=== PATIENT | female | born 1965 | race Caucasian/White ===

== ENCOUNTER 2019-01-11 17:44 | Emergency (ER) | payer BC ==
[~2019-01-11 17:44] MED LIST: ALBUTEROL2.5 MG/0.5 INH; ARMOUR THYROID120 M1 PO; BENTYL10 MG PO; CELEBREX100 MG PO; CIPRO500 MG PO; FIORICET 325 MG1 TAB PO; FLUONAZOLE100 M1 PO; MEDROL DOSEPAK4 MG PO; PREDNISONE10 MG PO; ZITHROMAX Z PA250 MG PO
[2019-01-11 18:02] VITALS: BP 158/89
[2019-01-11 18:03] LABS: BASO # 0.1 10*3/uL (0.0-0.1); BASO % 0.8 % (0.0-1.0); EOS # 0.4 10*3/uL (0.0-0.4); EOS % 5.5 % (1.0-4.0); HEMATOCRIT 37.2 % (37.0-47.0); HEMOGLOBIN 11.3 g/dl (12.0-16.0); LYMPH # 2.2 10*3/uL (1.3-4.4); LYMPH % 28.8 % (27.0-41.0); MEAN CELL VOLUME 89.6 fl (81.0-99.0); MEAN CORPUSCULAR HGB 27.2 pg (27.0-31.0); MEAN CORPUSCULAR HGB CONC 30.4 g/dl (33.0-37.0); MEAN PLATELET VOLUME 10.3 fl (9.6-12.3); MONO # 0.5 10*3/uL (0.1-1.0); MONO % 7.2 % (3.0-9.0); NEUT # 4.3 10*3/uL (2.3-7.9); NEUT % 57.4 % (47.0-73.0); PLATELET COUNT AUTOMATED 338 10*3/uL (130-400); RED BLOOD COUNT 4.15 10*6/uL (4.10-5.10); WHITE BLOOD COUNT 7.5 10*3/uL (4.8-10.8)
[2019-01-11 18:28] LABS: BUN 12 mg/dl (7-24); CHLORIDE 113 mmol/L (98-107); SODIUM 145 mmol/L (136-145)
[2019-01-11] MEDS ORDERED: PREDNISONE10 MG PO (19:35)
[2019-01-11] MEDS ORDERED: AUGMENTIN 875875 MG PO (19:35)
[2019-01-11] MEDS ORDERED: PROVENTIL HFA6.7 GM INH (19:35)
[2019-01-11] MEDS ORDERED: FLUONAZOLE100 M1 PO (20:03)
[2019-01-11] MEDS ORDERED: VENTOLIN 02.5 MG/3 M INH (20:03)
== END 2019-01-11 20:10 | disposition home or self-care (01) ==
LOC: ED 17:44
PROVIDERS: Emergency Medicine
DX: J45.901 Unspecified asthma with (acute) exacerbation (principal); M79.7 Fibromyalgia; Z88.8 Allergy status to other drugs, medicaments and biological substances; Z91.012 Allergy to eggs; Z88.6 Allergy status to analgesic agent; Z88.4 Allergy status to anesthetic agent; Z79.2 Long term (current) use of antibiotics; Z79.899 Other long term (current) drug therapy

== ENCOUNTER → 2021-02-21 | Outpatient (CLI) | payer OTHER ==
[~2021-02-21] MED LIST changes: +AUGMENTIN 875875 MG PO; +PROVENTIL HFA6.7 GM INH; +VENTOLIN 02.5 MG/3 M INH
== END | disposition home or self-care (01) ==
LOC: COVID19 14:58
PROVIDERS: ATTEND Internal Medicine
DX: U07.1 COVID-19 (principal)